=== PATIENT | female | born 1980 | race Hispanic/Latino ===

== ENCOUNTER → 2019-01-07 | Outpatient (CLI) | payer MEDICAID | END | disposition home or self-care (01) | LOC: OIH 14:51 | PROVIDERS: ATTEND Internal Medicine | DX: M25.521 Pain in right elbow (principal); M25.522 Pain in left elbow | CPT/HCPCS: 73070 ==

== ENCOUNTER → 2024-07-17 | Outpatient (CLI) | payer MEDICAID ==
--- NOTE | 2024-07-17 14:02 | HMCIMG ---
MR KNEE RIGHT WO REASON: Unspecified internal derangement of unspecified knee COMPARISON: None TECHNIQUE: Routine imaging protocol was performed in the sagittal, axial and coronal plane with T1, proton density, T2 and gradient recalled sequences. FINDINGS: There is attenuation of the free margin of the medial meniscus consistent with some miniscule degenerative change there is some linear abnormal signal in the posterior horn consistent with a tear, contacting the inferior meniscal surface. Lateral meniscus appears intact. Articular cartilage appears preserved. Cruciate and collateral ligaments appear normal. There is a moderate joint effusion. Quadriceps and patellar tendons appear normal. There are no focal osseous lesions. Stranding soft tissues appear unremarkable. IMPRESSION: 1. Probable tear posterior horn medial meniscus, there are some degenerative changes in the mid zone of the medial meniscus. 2. Moderate joint effusion. 3. Otherwise unremarkable exam.
== END | disposition home or self-care (01) ==
LOC: RAH 12:37
PROVIDERS: ATTEND Internal Medicine
DX: M25.461 Effusion, right knee (principal); M23.90 Unspecified internal derangement of unspecified knee; R26.81 Unsteadiness on feet; R29.898 Other symptoms and signs involving the musculoskeletal system
CPT/HCPCS: 73721

== ENCOUNTER → 2024-09-23 | Outpatient (CLI) | payer MEDICAID ==
[~2024-09-23] VITALS: Ht 162.6 cm; Wt 91.5 kg
[~2024-09-23] MED LIST: ACET-2743 PO
[2024-09-23 09:45] VITALS: BP 151/88; PULSE 79; RESP 18; TEMP 98.2
[2024-09-23 09:46] LABS: BASOPHILS # (AUTO) 0.04 K/uL (0.00-0.20); BASOPHILS % (AUTO) 0.8 % (0.0-5.0); EOSINOPHILS # (AUTO) 0.34 K/uL (0.00-0.70); EOSINOPHILS % (AUTO) 6.5 % (0.0-8.0); HEMATOCRIT 42.8 % (36-48); IMMATURE GRANULOCYTE ABSOLUTE 0.01 K/uL (0-1); LYMPHOCYTES # (AUTO) 1.6 K/uL (1.0-4.8); LYMPHOCYTES % (AUTO) 30.7 % (21.0-51.0); MEAN CORPUSCULAR HEMOGLOBIN 30.1 pg (27.0-33.0); MEAN CORPUSCULAR HGB CONC 33.6 g/dL (32.0-36.0); MEAN CORPUSCULAR VOLUME 89.4 fL (79-99); MONOCYTES # (AUTO) 0.5 K/uL (0.1-1.0); MONOCYTES % (AUTO) 8.6 % (3.0-13.0); NEUTROPHILS # (AUTO) 2.8 K/uL (1.8-7.7); NEUTROPHILS % (AUTO) 53.2 % (40.0-77.0); PLATELET COUNT (AUTO) 320 K/uL (130-400); RED BLOOD CELL COUNT(AUTO) 4.79 MIL/uL (4.00-5.50); RED CELL DISTRIBUTION WIDTH 12.7 % (11.0-15.5); WHITE BLOOD COUNT (AUTO) 5.2 K/uL (4.8-10.8)
[2024-09-23 09:53] LABS: CREATININE 0.8 mg/dL (0.5-1.0); POTASSIUM 4.4 mmol/L (3.5-5.1)
[2024-09-23 09:56] LABS: INR 1.03 (0.85-1.15); PROTHROMBIN TIME 10.9 SEC (9.6-11.6)
[2024-09-23 09:57] LABS: PARTIAL THROMBOPLASTIN TIME 28.5 SEC (26.3-35.5)
== END | disposition home or self-care (01) ==
LOC: DAH 08:00 → EDSTATUS 09-25 07:00
PROVIDERS: ATTEND Student in an Organized Health Care Education/Training Program
DX: Z01.812 Encounter for preprocedural laboratory examination (principal); S83.241A Other tear of medial meniscus, current injury, right knee, initial encounter; M25.561 Pain in right knee; M94.261 Chondromalacia, right knee; X58.XXXA Exposure to other specified factors, initial encounter; Y93.89 Activity, other specified; Y92.89 Other specified places as the place of occurrence of the external cause; Y99.8 Other external cause status
CPT/HCPCS: 36415; 80048; 85025; 85610; 85730

== ENCOUNTER 2024-10-09 06:29 | Day surgery (SDC) | payer MEDICAID ==
[2024-10-07 09:53] LABS: BASOPHILS # (AUTO) 0.04 K/uL (0.00-0.20); BASOPHILS % (AUTO) 0.7 % (0.0-5.0); EOSINOPHILS # (AUTO) 0.24 K/uL (0.00-0.70); EOSINOPHILS % (AUTO) 4.3 % (0.0-8.0); HEMATOCRIT 43.7 % (36-48); IMMATURE GRANULOCYTE ABSOLUTE 0.02 K/uL (0-1); LYMPHOCYTES # (AUTO) 1.7 K/uL (1.0-4.8); LYMPHOCYTES % (AUTO) 30.1 % (21.0-51.0); MEAN CORPUSCULAR HEMOGLOBIN 30.2 pg (27.0-33.0); MEAN CORPUSCULAR HGB CONC 33.9 g/dL (32.0-36.0); MEAN CORPUSCULAR VOLUME 89.2 fL (79-99); MONOCYTES # (AUTO) 0.4 K/uL (0.1-1.0); MONOCYTES % (AUTO) 6.3 % (3.0-13.0); NEUTROPHILS # (AUTO) 3.3 K/uL (1.8-7.7); NEUTROPHILS % (AUTO) 58.2 % (40.0-77.0); PLATELET COUNT (AUTO) 346 K/uL (130-400); RED CELL DISTRIBUTION WIDTH 12.4 % (11.0-15.5); WHITE BLOOD COUNT (AUTO) 5.6 K/uL (4.8-10.8)
[2024-10-07 10:02] LABS: CREATININE 0.7 mg/dL (0.5-1.0); POTASSIUM 4.6 mmol/L (3.5-5.1)
[2024-10-07 10:07] LABS: INR 0.97 (0.85-1.15); PROTHROMBIN TIME 10.3 SEC (9.6-11.6)
[2024-10-07 10:08] LABS: PARTIAL THROMBOPLASTIN TIME 28.9 SEC (26.3-35.5)
[2024-10-07 10:23] VITALS: BP 167/91; PULSE 82; RESP 16; TEMP 98.1
[~2024-10-09] VITALS: Ht 168.9 cm; Wt 90.5 kg
[2024-10-09] VITALS (14 sets, daily range): BP systolic 138–174; BP diastolic 85–104; PULSE 73–102; RESP 15–18; TEMP 97–97.9
[2024-10-09] MEDS ORDERED: 0.9%NACL 1000ML 1,000 ML IV SCH (06:30)
[2024-10-09] MEDS: ceFAZolin SODIUM 2 GM VIAL ONE (06:33)
[2024-10-09] MEDS: LACTATED RINGERS 1000ML 1,000 ML IV ONE (06:33)
[2024-10-09] MEDS ORDERED: acetaMINOPHEN 325 MG TAB ONE (06:58)
[2024-10-09] MEDS ORDERED: FAMOTIDINE 20MG VIAL IV ONE (06:58)
[2024-10-09] MEDS ORDERED: DiphenhydrAMINE HCL 50 MG/ML VIAL ONE (06:59)
[2024-10-09] MEDS ORDERED: LIDOCAINE PF 100MG/5ML (2%) SYRINGE 5ML ONE (08:10)
[2024-10-09] MEDS ORDERED: rocuRONium bROMide 10MG/1ML 5ML VL ONE (08:11)
[2024-10-09] MEDS ORDERED: proPOFol 10 MG/ML 20ML VIAL IV ONE (08:11)
[2024-10-09] MEDS ORDERED: FENTanyl CITRate PF 50 MCG/1 ML 2ML VIAL ONE (08:11)
[2024-10-09] MEDS ORDERED: ketaMINE 50MG/ML SYRINGE 50 MG/ML DISP.SYRIN ONE (08:14)
[2024-10-09] MEDS ORDERED: ACET-2079 PO (08:18)
[2024-10-09] MEDS ORDERED: dexaMETHasone SOD PHOSPHATE 10MG/ML 1ML VIAL ONE (09:34)
[2024-10-09] MEDS ORDERED: ondanSETRON 4MG INJ ONE (09:34)
[2024-10-09] MEDS ORDERED: MIDAZOLAM HCL 1 MG/ML 2ML VIAL ONE (09:36)
[2024-10-09] MEDS: ceFAZolin SODIUM 2 GM VIAL IVPB ONE (09:50)
[2024-10-09] MEDS ORDERED: BUPIvacaine/PF 0.25% 30ML VIAL IJ ONE (10:09)
[2024-10-09] MEDS ORDERED: GLYCOPYRROLATE 0.2 MG/ML 5 ML VIAL ONE (10:40)
[2024-10-09] MEDS ORDERED: NEOSTIGMINE METHYLSULFATE 1MG/ML IV ONE (10:40)
--- NOTE | 2024-10-09 11:01 | OP ---
Operative Note: DATE OF PROCEDURE: 10/09/24 SURGEON: FRAN MILLER MD FORENSIC ECONOMIST: Amairani Muller ANESTHESIA: General ANESTHESIOLOGIST/FURNITURE MECHANIC: Kaitlin El PREOPERATIVE DIAGNOSIS: Right knee medial meniscus tear POSTOPERATIVE DIAGNOSIS: Right knee medial meniscus tear, lateral meniscus tear, medial plica FINDINGS: On inserting the arthroscope into the knee we noted the suprapatellar pouch with no loose bodies mostly healthy-appearing articular cartilage the medial and lateral aspects of the patella. A lateral gutter with no loose bodies. Lateral compartment degenerative fraying of the posterior horn of lateral meniscus. 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 This was debrided along with the meniscus. Notch with the ACL intact. Medial compartment with complex tearing of the posterior horn of the medial meniscus but with intact root. Some mild grade 1 chondromalacia of the medial femoral condyle grade 2 of the medial tibial plateau. We debrided the junction and posterior horn and body medial meniscus tear but to a stable leading edge. Medial gutter with no loose bodies the been a large area of some grade three chondromalacia of the anterior weight- bearing portion of the femur. Appropriate patellar tracking after resecting patella plica to visualize. PROCEDURE: Right knee arthroscopy with partial medial and partial lateral meniscectomy and plica excision ESTIMATED BLOOD LOSS: 5 cc INDICATIONS: 44-year-old female with right knee pain he was found on MRI to have a posterior horn of the medial meniscus tear. We discussed the risks, benefits, and alternatives to undergoing arthroscopic partial meniscectomy of the patient desired to proceed with the procedure. DESCRIPTION OF PROCEDURE: Patient was properly identified in the preoperative holding area. Surgical site marking was verified and surgery consent reviewed. The patient was then taken to the operating room and placed in supine position o n the OR table. After induction of general anesthesia, preoperative antibiotics were given, all bony prominences were well-padded, and a well padded tourniquet was applied but not inflated at this time. The right lower extremity was then prepped and draped in usual sterile fashion. Surgical timeout was done verifying correct surgery, side, site, and location to be performed. We then began the procedure by making a standard anterolateral portal with an 11 blade and inserted our arthroscope through here. We made our anterior medial portal under direct visualization using spinal needle for localization. We then inserted our probe and performed our diagnostic arthroscopy with the above mentioned findings. At this point we inserted shaver into the lateral compartment and performed our lateral meniscal debridement and shaving chondroplasty. We then inserted the meniscal biters into the medial compartment and further debrided medial meniscus back to a stable leading edge. The shaver device was inserted to smooth off the remaining tissue and remove the debris from the meniscal biters. We then began to repositioned the scope into the suprapatellar compartment to visualize tracking of the patella noted there to be a large medial sided plica. We used the shaver device to excise this medial plica. Once we were happy with our debridement, we then thoroughly irrigated out the wound with normal saline. We removed as much fluid from the knee as possible. We then injected local anesthetic within the capsule of the joint as well as around the portal sites. Our portal sites were then repaired using 3-0 nylon in simple fashion. Sterile dressing was then applied consisting of Xeroform, 4 x 4's, ABD, cast padding, and an Ld wrap. The patient was then awakened from anesthesia and taken to recovery room in stable condition. FRAN MILLER MD Oct 09, 2024 11:01
[2024-10-09] MEDS: LAbetaLOL 20MG VIAL ONE (11:11)
[2024-10-09] MEDS: FENTanyl CITRate PF 50 MCG/1 ML 2ML VIAL ONE (11:18)
--- NOTE | 2024-10-09 12:15 | NUR ---
Patient seen. Patient still a little groggy. Significant other present and instructed him proper gait technique as well as to elevate leg but not under knee. Both voiced understanding. Addendum: 10/09/24 at 1716 by HAWK VILLAVICENCIO PT Amended: Links added.
--- NOTE | 2024-10-09 12:42 | NUR ---
Full and complete discharge instructions given to Patient and Family both verbally and in writing. Explained Surgical procedure precautions and follow up. Neurovascularly intact. PT completed Crutch training. All questions answered. PIV removed with catheter tip intact. Home with Family W/C to POV.
== END 2024-10-09 12:30 | disposition home or self-care (01) ==
LOC: DAH 06:29
PROVIDERS: ATTEND Student in an Organized Health Care Education/Training Program
DX: M23.221 Derangement of posterior horn of medial meniscus due to old tear or injury, right knee (principal); M23.251 Derangement of posterior horn of lateral meniscus due to old tear or injury, right knee; M25.561 Pain in right knee; M94.261 Chondromalacia, right knee; E66.9 Obesity, unspecified; Z68.33 Body mass index [BMI] 33.0-33.9, adult; Z90.49 Acquired absence of other specified parts of digestive tract; Z79.01 Long term (current) use of anticoagulants; Z90.710 Acquired absence of both cervix and uterus; Z98.891 History of uterine scar from previous surgery
CPT/HCPCS: 80048; 85025; 85610; 85730; 36415; 29880; 97161; 97116; A4663; A4649 ×2; J7120; J1200; J3490 ×5; J3010 ×2; J1100; J0665 ×2; J2003; J2250; J2704; J2405; J2710; J0690 ×2; A6223; A4930; A5120; A4215; A4222; A4221; A4216; A6450; A4223 ×2

== ENCOUNTER → 2025-01-12 | Outpatient (CLI) | payer MEDICAID ==
[~2025-01-12] MED LIST changes: +ACET-2079 PO; -ACET-2743 PO
[2025-01-12 18:27] LABS: BODY FLUID RBC 728 /cu. mm.; BODY FLUID WBC 898 /cu. mm.
[2025-01-12 20:03] LABS: BF EOSINOPHIL 1 %; BF LYMPHOCYTE 71 %; BF MACROPHAGE 16; BF MONOCYTE 10 %; BF NEUTROPHIL 2.0 %; BF TOTAL CELLS COUNTED 100
[2025-01-12 20:07] LABS: APPEARANCE BODY FLUID SLIGHTLY CLOUDY (CLEAR); COLOR,BODY FLUID YELLOW (LT YELLOW); SPECIMENTYPE,BODY FLUID SYNOVIAL; TOTAL VOLUME,BODY FLUID 30 mL
== END | disposition home or self-care (01) ==
LOC: LAB 16:34
PROVIDERS: ATTEND Student in an Organized Health Care Education/Training Program
DX: M25.461 Effusion, right knee (principal)
CPT/HCPCS: 87071; 87076; 87205; 89051; 89060